=== PATIENT | male | born 1990 | race Caucasian/White ===

== ENCOUNTER 2025-05-07 16:44 | Emergency (ER) | payer OTHER ==
[2025-05-07] MEDS: Bacitracin Oint 1 GM U/D Packet TOP ONE (18:03)
[2025-05-07] MEDS: Diphtheria,Pertussis(Acell),Tetanus Vaccine 0.5 ML Syringe IM ONE (18:03)
== END 2025-05-07 18:33 | disposition home or self-care (01) ==
LOC: JP.ED 16:44
DX: S91.115A Laceration without foreign body of left lesser toe(s) without damage to nail, initial encounter (principal); Z23 Encounter for immunization; I10 Essential (primary) hypertension; Z79.899 Other long term (current) drug therapy; W22.8XXA Striking against or struck by other objects, initial encounter
CPT/HCPCS: 12002; 90471; 90715; 99282-25